=== PATIENT | male | born 1945 | race Caucasian/White ===

== ENCOUNTER 2020-12-05 17:31 | Inpatient (IN) | payer OTHER, SELFPAY ==
[2020-12-05] VITALS (7 sets, daily range): BP systolic 90–147
[~2020-12-05] VITALS: Ht 190.5 cm; Wt 94.0 kg
--- NOTE | 2020-12-05 17:40 | NUR ---
Placed in room 08 . Placed on patient monitor, blood pressure machine and pulse oximeter. To gown for exam. Side rails up.
--- NOTE | 2020-12-05 17:45 | NUR ---
PT BIB [facility] FOR HYPOTENSION AND LOW HR. PT IS FROM [facility].ALS WAS CALLED FOR PT DUE TO BP OF 80/40 AND HR OF 40. PT IS A VENT DEPENDANT PT. ALS GAVE A FLUID BOLUS OF 250 NS AND .5MG ATROPINE FOR HIS HR. PTS HR NOW IS IN THE LOW 40s. PT IS A&OX0 BASELINE AND IS FULL CODE.
[2020-12-05] MEDS ORDERED: NACL 0.9% 1,000 ML IV ONE ×2 (18:00→20:45)
--- NOTE | 2020-12-05 18:05 | NUR ---
NOTIFIED FOR RECTAL TEMPERATURE OF 32 C. JACKSON JEAN ORDERED AND CARRIED OUT.
--- NOTE | 2020-12-05 18:07 | NUR ---
WHEN BAIRR HUGGER APPLIED TO PATIENT AND SET TO AUTO TEMP. UPON TURNING PATIENT AND PLACING RECTAL PROBE PLACED, PATIENT HAS A SACRAL WOUND. WOUND CLEANSED WITH NORMAL SALINE AND MEPILEX APPLIED TO SACRUM.
--- NOTE | 2020-12-05 18:10 | NUR ---
# 16 FR Marroquin catheter with use of sterile technique. Immediate return of 10 cc CLEAR YELLOW urine noted. Bedside drainage bag placed below level of bladder. Urine sample collected and sent to lab. Pt tolerated procedure WELL. Patient arrived with marroquin in place, changed due to standard of practice prior to admission. Patient unable to toilet self.
--- NOTE | 2020-12-05 18:11 | NUR ---
1750 Pt came in to ER, trach pt. AC 16,450VT, PEEP 6, FIO2 30% PER AMBULANCE. PORTEX #8. Placed spare trach and BVM on bedside. will continue to monitor pt. Sputum culture done. 1804 Pt desated low 80s, increased fio2 100%, ER Dr. Alvarado ordered ABG in 30 mins.
[2020-12-05 18:28] LABS: BILIRUBIN,URINE NEGATIVE (NEGATIVE); CLARITY/URINE CLEAR (CLEAR); COLOR,URINE YELLOW (YELLOW); GLUCOSE,URINE NEGATIVE (NEGATIVE); KETONES,URINE NEGATIVE (NEGATIVE); LEUKOCYTE ESTERASE ,URINE TRACE (NEGATIVE); NITRITE, URINE NEGATIVE (NEGATIVE); PH,URINE 6.5 (5.0-8.0); PROTEIN URINE NEGATIVE (NEGATIVE); UROBILINOGEN,URINE 0.2 (0.2-1.0)
--- NOTE | 2020-12-05 18:32 | NUR ---
Note undone in EDM - 12/05/20 at 1840 by MIRYAM PT BIB [facility] FOR HYPOTENSION AND LOW HR. PT IS FROM [facility].ALS WAS CALLED FOR PT DUE TO BP OF 80/40 AND HR OF 40. PT IS A VENT DEPENDANT PT. ALS GAVE A FLUID BOLUS OF 250 NS AND .5MG ATROPINE FOR HIS HR. PTS HR NOW IS IN THE LOW 40s. PT IS A&OX0 BASELINE AND IS FULL CODE.
[2020-12-05 18:37] LABS: BLOOD, URINE TRACE (NEGATIVE)
[2020-12-05 18:47] LABS: BACTERIA,URINE FEW /HPF (None Seen); CALCIUM OXALATE CRYSTALS,UR None Seen /HPF (None Seen); CALCIUM PHOSPHATE CRYSTALS,UR None Seen /HPF (None Seen); RBC,URINE 0-3 /HPF (0-3); TRICHOMONAS,URINE None Seen /HPF (None Seen); TRIPLE PHOSPHATE CRYSTAL,UR None Seen /HPF (None Seen); URIC ACID CRYSTALS,URINE None Seen /HPF (None Seen); YEAST,URINE None Seen /HPF (None Seen)
[2020-12-05 18:48] LABS: COARSE GRANULAR CASTS,URINE None Seen /LPF (None Seen); FINE GRANULAR CASTS,URINE None Seen /LPF (None Seen); HYALINE CASTS, URINE None Seen /LPF (None Seen); MUCUS,URINE None Seen /LPF (None Seen); OTHER CASTS, URINE None Seen /LPF (None Seen); OTHER CRYSTALS,URINE None Seen /HPF (None Seen); URINE AMORPHOUS PHOSPHATES None Seen /HPF (None Seen); URINE AMORPHOUS URATE None Seen /HPF (None Seen); WAXY CASTS,URINE None Seen /LPF (None Seen)
[2020-12-05 18:52] LABS: MEAN CORPUSCULAR HEMOGLOBIN 30 pg (27-31); MEAN CORPUSCULAR HGB CONC 31 % (32-36); MEAN CORPUSCULAR VOLUME 97 fL (79.0-98.0); PLATELET COUNT (AUTO) 132 K/uL (130-430); RED BLOOD CELL COUNT(AUTO) 2.01 MIL/uL (4.2-6.2); RED CELL DISTRIBUTION WIDTH 19.6 % (9.0-15.0); WHITE BLOOD COUNT (AUTO) 13.5 K/uL (4.8-10.8)
--- NOTE | 2020-12-05 19:00 | NUR ---
PT HAS NO BELONGINGS
--- NOTE | 2020-12-05 19:00 | NUR ---
PT IS FULL CODE
[2020-12-05 19:03] LABS: HEMATOCRIT 19.5 % (36-54)
[2020-12-05] MEDS ORDERED: ASCO500T20 GT (19:11)
[2020-12-05] MEDS ORDERED: TYLL650 GT (19:11)
[2020-12-05] MEDS ORDERED: MULT-1100 GT (19:11)
[2020-12-05] MEDS ORDERED: DORZ10DR10 EACH EYE (19:11)
[2020-12-05] MEDS ORDERED: ZINC220T4 GT (19:11)
[2020-12-05] MEDS ORDERED: FERR220S6 GT (19:11)
--- NOTE | 2020-12-05 19:14 | NUR ---
Medication reconciliation completed with information provided by [facility]. Any prior medication reconciliation on file was reviewed and corrected.
[2020-12-05 19:19] LABS: CALCIUM 8.1 mg/dL (8.4-11.0); CHLORIDE 101 mmol/L (98-107); CREATININE 1.17 mg/dL (0.55-1.30); GLUCOSE 88 mg/dL (70-99); SODIUM SERUM 137 mmol/L (136-145); UREA NITROGEN, BLOOD 65 mg/dL (8-21)
[2020-12-05 19:39] LABS: TOTAL BILIRUBIN 0.3 mg/dL (0.0-1.0)
[2020-12-05 19:40] LABS: ALANINE AMINOTRANSFERASE 57 U/L (12-78); ALBUMIN 1.6 g/dL (3.4-4.8); ASPARTATE AMINOTRANSFERASE 52 U/L (10-37)
[2020-12-05 19:41] LABS: ANION GAP < 3 (5-15)
[2020-12-05] MEDS ORDERED: PIPERACILLIN/TAZO 3.375 GM in NS 50 ML IV ONE (20:00)
[2020-12-05] MEDS ORDERED: SODIUM POLYSTYRENE SULFONATE 15 GM/60 ML UDBTL GT ONE (20:00)
[2020-12-05] MEDS ORDERED: PIPERACILLIN/TAZOBACTAM 3.375 GM/VIAL (ZOSYN) IV ONE ×2 (20:02→23:32)
[2020-12-05 20:05] LABS: BAND % (MANUAL) 24 % (0-6); BASOPHILS % (MANUAL) 1 % (0-2); EOSINOPHILS % (MANUAL) 2 % (0-7); LYMPHOCYTES % (MANUAL) 9 % (20-46); MONOCYTES % (MANUAL) 9 % (0-11)
--- NOTE | 2020-12-05 20:12 | NUR ---
Patient will be admitted to care of Dr. Trotter. Admitted to ICU unit. Will go to room 4. Belongings list completed. Complete and up to date summary report printed. SBAR report to be given at bedside with opportunity for questions.
[2020-12-05] MEDS ORDERED: ACETAMINOPHEN 325 MG TABLET PO PRN (20:15)
[2020-12-05] MEDS ORDERED: MORPHINE 4 MG INJ. 4 MG/ML VIAL IVP PRN (20:15)
[2020-12-05] MEDS ORDERED: ALBUTEROL SULFATE 0.083% 2.5 MG/3 ML VIAL.NEB INH PRN (20:15)
[2020-12-05] MEDS ORDERED: MORPHINE 2 MG/ML INJ. SYRINGE IVP PRN (20:15)
[2020-12-05] MEDS ORDERED: NOREPINEPHRINE BITARTRATE 4 MG in NS 246 ML IV ONE (20:15)
[2020-12-05] MEDS ORDERED: LORazepam 2 MG/ML VIAL IVP PRN (20:15)
--- NOTE | 2020-12-05 20:19 | NUR ---
Blood Consent signed by Dr. Alvarado. Attempted to call on multiple occasions and no answer. Patient is hemodynamically unstable at this time.
--- NOTE | 2020-12-05 20:40 | NUR ---
DR. RAMOS AT BEDSIDE INSTERTING A CENTRAL LINE. LEFT IJ. TRIPLE LUMEN.
[2020-12-05] MEDS ORDERED: ATROPINE SULFATE 0.4 MG/ML VIAL IVP PRN (20:45)
[2020-12-05] MEDS ORDERED: SODIUM POLYSTYRENE SULFONATE 15 GM/60 ML UDBTL RC ONE (20:45)
--- NOTE | 2020-12-05 20:50 | NUR ---
SPOKE WITH RADHA, WHO CONSENTED BLOOD TRANSFUSION.
[2020-12-05] MEDS ORDERED: NOREPINEPHRINE 4 MG/4 ML VIAL IV ONE (20:57)
--- NOTE | 2020-12-05 21:05 | NUR ---
radiology at bedside for chest xray to confirm placement of central line
[2020-12-05] MEDS: NACL 0.9% 1,000 ML IV SCH ×2 (21:16→22:43)
--- NOTE | 2020-12-05 21:24 | NUR ---
Transfer to ICU via ACLS protocol. Licensed nurse present. IV present no signs or symptoms of infiltration.
--- NOTE | 2020-12-05 21:50 | NUR ---
Received patient from ER, not awake, alert or oriented. Intubated via trach, settings: TV 500, 50L, peep 6, FiO2 100%, tolerating it well. Patient has a g-tube, placement was verified, residual is 0ml. Patient has a marroquin cath, draining out yellow urine, bag is secured and below bladder. Patient on levophed drip, bradycardic at this time. On a bear hugger. No belongings present. New central line placed, patent and dressing is intact. I got a full report from ER nurse. Bed is low, locked, 2 side rails are up and call light is within reach.
--- NOTE | 2020-12-05 22:07 | NUR ---
PAGED FOR CONSULT ORDERING PHYSICIAN: \ REASON FOR CONSULT: BRADYCARDIA DIALED: [phone] SPOKE TO: RALPH
[2020-12-05] MEDS ORDERED: VANCOMYCIN HCL 1 GM/NS PREMIX 250 ML IV ONE (23:45)
[2020-12-05] MEDS ORDERED: ALBUMIN HUMAN 25% 100 ML IV ONE (23:45)
[2020-12-06] VITALS (30 sets, daily range): BP systolic 101–138
[2020-12-06] MEDS ORDERED: VANCOMYCIN HCL 1000 MG/VIAL IV ONE (00:23)
[2020-12-06] MEDS ORDERED: PIPERACILLIN/TAZO 3.375/DEX-IS 50 ML IV SCH (02:00)
[2020-12-06] MEDS ORDERED: NOREPINEPHRINE 4 MG/4 ML VIAL IV ONE ×2 (03:13→08:21)
[2020-12-06] MEDS: NOREPINEPHRINE BITARTRATE 4 MG in NS 246 ML IV PRN ×3 (03:15→13:47)
[2020-12-06] MEDS ORDERED: ALBUMIN HUMAN 25% 100 ML IV ONE (03:55)
--- NOTE | 2020-12-06 06:01 | NUR ---
PAGED FOR CONSULT ORDERING PHYSICIAN: \ REASON FOR CONSULT: RESPIRATORY FAILURE DIALED: [phone] SPOKE TO:
[2020-12-06 06:10] LABS: HEMATOCRIT 23.2 % (36-54); HEMOGLOBIN 7.2 g/dL (14.0-18.0); MEAN CORPUSCULAR HEMOGLOBIN 30 pg (27-31); MEAN CORPUSCULAR HGB CONC 31 % (32-36); MEAN CORPUSCULAR VOLUME 96 fL (79.0-98.0); PLATELET COUNT (AUTO) 144 K/uL (130-430); RED BLOOD CELL COUNT(AUTO) 2.42 MIL/uL (4.2-6.2); RED CELL DISTRIBUTION WIDTH 18.5 % (9.0-15.0); WHITE BLOOD COUNT (AUTO) 19.6 K/uL (4.8-10.8)
[2020-12-06 06:31] LABS: ALANINE AMINOTRANSFERASE 51 U/L (12-78); ALBUMIN 2.1 g/dL (3.4-4.8); ANION GAP 5 (5-15); ASPARTATE AMINOTRANSFERASE 60 U/L (10-37); CALCIUM 8.2 mg/dL (8.4-11.0); CHLORIDE 102 mmol/L (98-107); CREATININE 1.24 mg/dL (0.55-1.30); SODIUM SERUM 139 mmol/L (136-145); TOTAL BILIRUBIN 0.3 mg/dL (0.0-1.0); UREA NITROGEN, BLOOD 64 mg/dL (8-21)
[2020-12-06 06:36] LABS: BAND % (MANUAL) 20 % (0-6); BASOPHILS % (MANUAL) 0 % (0-2); EOSINOPHILS % (MANUAL) 1 % (0-7); LYMPHOCYTES % (MANUAL) 2 % (20-46); METAMYELOCYTES % 5 % (0-0); MONOCYTES % (MANUAL) 4 % (0-11); MYELOCYTES % 2 % (0-0); PROMYELOCYTES % 3 % (0-0)
--- NOTE | 2020-12-06 06:59 | NUR ---
Nutrition Update Juan Scale 10 noted. Pt admitted for Multiorgan failure, Septic shock Diet: NPO BMI: 21.2 kg/m2 RD to follow per nutrition care standards.
[2020-12-06 07:29] LABS: POTASSIUM 5.9 mmol/L (3.5-5.1)
[2020-12-06 07:30] LABS: GLUCOSE 17 mg/dL (70-99)
[2020-12-06] MEDS ORDERED: DEXTROSE 50% JECT 50 ML DISP.SYRIN ONE ×2 (07:39→08:38)
[2020-12-06] MEDS ORDERED: DEXTROSE 50% JECT 50 ML DISP.SYRIN IVP PRN (07:45)
[2020-12-06] MEDS ORDERED: D5W 1,000 ML IV PRN (07:45)
[2020-12-06] MEDS ORDERED: GLUCOSE (DEXTROSE) ORAL GEL -Adults PO PRN (07:45)
[2020-12-06] MEDS: D5W 1,000 ML IV SCH ×2 (08:00→12:35)
[2020-12-06] MEDS ORDERED: SODIUM POLYSTYRENE SULFONATE 15 GM/60 ML UDBTL PO ONE (08:00)
[2020-12-06] MEDS: D10W 1,000 ML IV SCH ×2 (08:54→22:27)
[2020-12-06] MEDS ORDERED: PIPERACILLIN/TAZOBACTAM 3.375 GM/ D5W 50 ML IV ONE ×2 (10:00)
[2020-12-06] MEDS: VANCOMYCIN HCL 750 MG in NS 250 ML IV SCH ×2 (12:04→21:10)
--- NOTE | 2020-12-06 13:32 | NUR ---
Dietitian Recommendations *Recommend: renal friendly EN formula (elevated K). *Recommend: Nepro at 35ml/hr (goal rate), Farooq BID, FWF 150ml Q4H via GT Provides: 1672 kcal, 73gm protein and 1511ml fluids daily. Meets: 91% of lower end of estimated calorie needs and 95% of lower end of estimated protein needs. Please see Nutritional Assessment for details. INTERMEDIATE, RD
--- NOTE | 2020-12-06 15:07 | NUR ---
WOUND EVALUATION: Late note for 12/06/2020 at 1507 secondary to patient care. Wound Consult received from Dr. Duncan. Thank you, Dr. Duncan, for the consult. Patient received in a Shayla Bed with an IsoFlex ISABELLA mattress, awake, nonverbal, nonresponsive to verbal commands. Patient is unable to turn in bed independently. Juan Score is a 10. Past Medical History: Cardiac Arrest, Tracheostomy, Intracranial Bleed, Diabetes Mellitus, Ventilator dependency, PEG tube. Recent Labs: WBC 19.6, RBC 2.42, hemoglobin 7.2, hematocrit 23.2, potassium 5.9, carbon dioxide 32, BUN 64, creatinine 1.24, glucose 17, POC glucose 119, calcium 8.2, AST 60, alkaline phosphatase 282, albumin 2.1, TSH 36.93. Microbiology: Blood culture results x2 in progress. MRSA screen results in progress. Sputum culture results in progress. Urine culture results negative. Intrinsic factors that delay wound healing: Venous insufficiency, Hypoalbuminemia. Extrinsic factors that delay wound healing: Decreased mobility. Per assessment by Dr. Cramer: "1. Acute on chronic hypoxic respiratory failure, status post tracheostomy. 2. Septic shock. 3. Multiorgan failure. 4. Symptomatic bradycardia. 5. Severe anemia. 6. Severe leukocytosis with bandemia. 7. Bilateral pulmonary infiltrate, concern for pneumonia, COVID negative PCR. 8. History of cardiac arrest. 9. Chronic dysphagia. 10. Severe hypoglycemia. PLAN: 1. Continue mechanical ventilation support. 2. Continue broad spectrum IV antibiotics. 3. Continue D10. Monitor Accu-Cheks. D50 p.r.n. Start tube feeds. 4. Severe bradycardia status post atropine. Continue to monitor for need for dopamine. 5. Continue to wean vasopressors to keep MAP above 65. 6. Status post transfusion. Monitor H and H. No signs of bleeding. 7. Follow up blood cultures. 8. Chest x-ray noted with bilateral infiltrate concerning for right hilar density. We will obtain CT chest, abdomen and pelvis. Further evaluation of sepsis. 9. Check TSH with hypoglycemia and bradycardia. 10. Hyperkalemia noted, continue cocktail treatment. 11. Overall prognosis is poor. We will need to contact family, discuss goals of care. The patient is high risk for further decompensation and cardiac arrest. 12. DVT and GI prophylaxis." Wound Assessment: 1. Sacral-Coccygeal area: Stage IV pressure ulcer, present on admission. Wound bed has 5% red tissue, 15% yellow slough, 80% black slough. Foul odor, small yellow purulent drainage. Ana-wound intact. Surrounding tissue superior to wound has dark discoloration. Wound measures 9.7 cm x 12.0 cm. Recommend: Cleanse wound with normal saline. Apply moisture barrier cream to ana-wound. Apply Venelex ointment to wound bed. Cover with Sacral foam dressing. Perform wound care daily, and as needed for dressing soiling or dislodgement. 2. Right Posterior Lateral Upper Back: Unstageable pressure ulcer, present on admission. Wound bed has 100% yellow tissue. No odor, scant yellow drainage. Ana-wound intact. Wound measures 0.8 cm x 0.5 cm. Recommend: Cleanse wound with normal saline. Apply moisture barrier cream to ana-wound. Apply Venelex ointment to wound bed. Cover with 4x4 foam dressing. Perform wound care daily, and as needed for dressing soiling or dislodgement. 3. Left Distal Medial Rodas: Scab, present on admission. Scab has 100% brown scab tissue. No odor, no drainage. Periwound erythematous. Scab measures 2.0 cm x 1.5 cm. Recommend: Cleanse wound with normal saline. Apply moisture barrier cream to ana-wound. Apply Venelex ointment to wound bed. Cover with 4x4 foam dressing. Perform wound care daily, and as needed for dressing soiling or dislodgement. 4. Left Medial Malleolus: Chronic unstageable pressure ulcer, present on admission. Wound bed has 100% brown eschar. No odor, no drainage. Dry, stable. Ana-wound intact. Wound measures 2.0 cm x 1.7 cm. Recommend: Cover site with foam dressing. Change dressing daily, and as needed for dressing soiling or dislodgment. Assess site q shift (peel dressing and peak to assess site when dressing is not due to be changed). 5. Scrotum: Intertrigo with erythema from IAD, present on admission. Recommend: Cleanse involved areas with mild soap and water. Pat dry. Apply antifungal powder to involved areas. Dust off excess powder with clean gauze. Cut Inter-dry Ag cloth to size and place underneath scrotum and pull scrotum up off of bed by pulling cloth up in between thighs. Perform site care twice daily. Replace Inter-dry cloth every 5 days and as needed for cloth soiling. 6. Left Heel: Blanchable redness. 7. Right Heel: Blanchable redness. Recommend: Elevate, offload and float bilateral heels with one pillow lengthwise under each extremity at all times. 8. Bilateral Upper Extremities: Scattered areas of ecchymosis and scabs, present on admission. Gross nonpitting edema present with small serous weepage. Recommend: No dressings needed. Continue to monitor site every shift. Elevate bilateral extremities above the head every shift. 9. Bilateral Lower Extremities: Scattered areas of scabs, present on admission. Recommend: No dressings needed. Continue to monitor site every shift. Elevate, offload and float bilateral lower extremities with one pillow lengthwise under each extremity at all times. Also recommend: Reposition patient side to side only 2 hours with pillow support and off-load pressure areas with pillows for pressure re-distribution. Offload, elevate and float bilateral heels with one pillow lengthwise under each extremity at all times. Perform skin care and monitor skin integrity Q shift. Use moisture barrier cream on buttocks and other moisture susceptible areas QID and as needed for soiling. Initiate low air-loss therapy.
[2020-12-06] MEDS ORDERED: NOREPINEPHRINE BITARTRATE 8 MG in D5W 242 ML IV PRN (18:15)
[2020-12-06] MEDS: PIPERACILLIN/TAZOBACTAM 3.375 GM/ D5W 50 ML IV SCH ×2 (18:39)
--- NOTE | 2020-12-06 19:36 | NUR ---
CLOSING NOTE: REPORT GIVEN TO RN USING SBAR REPORTING. PT CONT ON D10, LAST BS WAS 119.
--- NOTE | 2020-12-06 20:00 | NUR ---
RESPONDS TO NOXIOUS STIMULI. TRACH TO VENT. SUCTIONED WITH MOD AMOUNT OF THICK CORRAL MUCUS OBTAINED. ORAL CARE GIVEN. GT FEEDING WITH NEPRO AT 35CC/HR. RESIDUAL CHECK 40CC. ON LEVOPHED DECREASED TO 0.1 MCG/KG/MIN. ACCU-CHEK Q 1H. ON D10W AT 75CC/HR. SEGUNDO CATH PATENT DRAINING CLOUDY OSCAR URINE TO GRAVITY.
--- NOTE | 2020-12-06 22:00 | NUR ---
HS CARE GIVEN.
[2020-12-07] VITALS (34 sets, daily range): BP systolic 118–153
--- NOTE | 2020-12-07 | NUR ---
SUCTIONED WITH SAME RESULTS. ORAL CARE GIVEN. TURNED. ACCU-CHEK Q1 HR DONE.
[2020-12-07] MEDS: PIPERACILLIN/TAZOBACTAM 3.375 GM/ D5W 50 ML IV SCH ×8 (00:10→17:11)
--- NOTE | 2020-12-07 04:00 | NUR ---
SUCTIONED. TURNED. ORAL CARE DONE. LEVOPHED DECREASED TO 0.07 MCG/KG/MIN.
--- NOTE | 2020-12-07 06:00 | NUR ---
UO GOOD. ACCU-CHEK 233. AM CARE DONE. REMAINS IN GUARDED CONDITION.
[2020-12-07 07:05] LABS: BASOPHILS # (AUTO) 0.1 K/uL (0.0-0.2); BASOPHILS % (AUTO) 0.4 % (0.0-2.0); EOSINOPHILS # (AUTO) 0.1 K/uL (0.0-0.4); LYMPHOCYTES # (AUTO) 0.9 K/uL (1.0-5.5); LYMPHOCYTES % (AUTO) 6.8 % (20.5-51.5); MEAN CORPUSCULAR HEMOGLOBIN 30 pg (27-31); MEAN CORPUSCULAR HGB CONC 32 % (32-36); MEAN CORPUSCULAR VOLUME 96 fL (79.0-98.0); MONOCYTES # (AUTO) 0.5 K/uL (0.0-1.0); NEUTROPHILS # (AUTO) 11.6 K/uL (1.8-7.7); NEUTROPHILS % (AUTO) 87.8 % (40.0-70.0); PLATELET COUNT (AUTO) 110 K/uL (130-430); RED CELL DISTRIBUTION WIDTH 18.2 % (9.0-15.0); WHITE BLOOD COUNT (AUTO) 13.2 K/uL (4.8-10.8)
[2020-12-07 07:17] LABS: PROTHROMBIN TIME 10.3 SECS (9.5-12.5)
[2020-12-07 07:25] LABS: ALANINE AMINOTRANSFERASE 52 U/L (12-78); ALBUMIN 1.7 g/dL (3.4-4.8); ANION GAP 8 (5-15); ASPARTATE AMINOTRANSFERASE 42 U/L (10-37); CALCIUM 7.6 mg/dL (8.4-11.0); CHLORIDE 104 mmol/L (98-107); CREATININE 1.35 mg/dL (0.55-1.30); GLUCOSE 242 mg/dL (70-99); LIPASE 489 U/L (73-393); POTASSIUM 4.5 mmol/L (3.5-5.1); SODIUM SERUM 143 mmol/L (136-145); TOTAL BILIRUBIN 0.3 mg/dL (0.0-1.0); UREA NITROGEN, BLOOD 55 mg/dL (8-21)
[2020-12-07] MEDS: D5W 1,000 ML IV SCH ×2 (07:55→17:10)
[2020-12-07] MEDS: VANCOMYCIN HCL 750 MG in NS 250 ML IV SCH ×2 (09:43→21:15)
[2020-12-07 10:09] LABS: HEMATOCRIT 20.1 % (36-54); HEMOGLOBIN 6.4 g/dL (14.0-18.0)
[2020-12-07] MEDS ORDERED: BALSAM PERU/CASTOR OIL 60 GM OINT...G. TP ONE (14:00)
[2020-12-07] MEDS ORDERED: PANTOPRAZOLE SODIUM 40 MG/VIAL (PROTONIX) IVP ONE (16:00)
[2020-12-07] MEDS ORDERED: FUROSEMIDE 40 MG/4 ML VIAL IVP ONE (16:00)
--- NOTE | 2020-12-07 19:30 | NUR ---
Opening Note Received report from AM nurse using SBAR approach.
--- NOTE | 2020-12-07 19:50 | NUR ---
1 unit blood transfusion completed. No signs or symptoms of distress or adverse reactions noted.
--- NOTE | 2020-12-07 21:00 | NUR ---
BT INITIATION: Consent signed per patient agreeing to administration of blood. Blood has been type and crossmatched. Blood sent from blood bank. Information on unit of blood checked against patient wristband at bedside by two nurses. All information matches. Patient or responsible constitution party informed of potential complications associated with blood transfusion. Informed of possible transfusion reaction symptoms. Aware of need to notify nurse at once of itching, shortness of breath, flushing, feeling of impending doom, or other symptoms not previously present. Vital signs taken within 5 minutes prior to initiation of transfusion. RN will remain with patient for first 15 minutes of transfusion at which time vital signs will be re-assessed.
--- NOTE | 2020-12-07 23:50 | NUR ---
2 unit of blood transfusion completed. No signs or symptoms of distress or adverse reactions noted.
[2020-12-08] VITALS (36 sets, daily range): BP systolic 101–154
[2020-12-08] MEDS: D5W 1,000 ML IV SCH ×4 (00:35→19:45)
[2020-12-08] MEDS: PIPERACILLIN/TAZOBACTAM 3.375 GM/ D5W 50 ML IV SCH ×8 (00:35→18:13)
[2020-12-08] MEDS: LEVOTHYROXINE SODIUM 0.075 MG TABLET PO SCH (06:34)
[2020-12-08 06:36] LABS: BASOPHILS % (AUTO) 0.3 % (0.0-2.0); EOSINOPHILS # (AUTO) 0.2 K/uL (0.0-0.4); EOSINOPHILS % (AUTO) 2.5 % (0.0-4.0); HEMATOCRIT 27.2 % (36-54); HEMOGLOBIN 8.8 g/dL (14.0-18.0); LYMPHOCYTES # (AUTO) 0.7 K/uL (1.0-5.5); LYMPHOCYTES % (AUTO) 8.3 % (20.5-51.5); MEAN CORPUSCULAR HEMOGLOBIN 31 pg (27-31); MEAN CORPUSCULAR HGB CONC 32 % (32-36); MEAN CORPUSCULAR VOLUME 95 fL (79.0-98.0); MONOCYTES # (AUTO) 0.4 K/uL (0.0-1.0); MONOCYTES % (AUTO) 4.3 % (1.7-9.3); NEUTROPHILS # (AUTO) 7.1 K/uL (1.8-7.7); PLATELET COUNT (AUTO) 80 K/uL (130-430); RED BLOOD CELL COUNT(AUTO) 2.86 MIL/uL (4.2-6.2); RED CELL DISTRIBUTION WIDTH 16.5 % (9.0-15.0); WHITE BLOOD COUNT (AUTO) 8.4 K/uL (4.8-10.8)
[2020-12-08 06:51] LABS: ALANINE AMINOTRANSFERASE 47 U/L (12-78); ALBUMIN 1.7 g/dL (3.4-4.8); ANION GAP 9 (5-15); ASPARTATE AMINOTRANSFERASE 36 U/L (10-37); CHLORIDE 103 mmol/L (98-107); CREATININE 1.33 mg/dL (0.55-1.30); GLUCOSE 295 mg/dL (70-99); POTASSIUM 3.6 mmol/L (3.5-5.1); SODIUM SERUM 144 mmol/L (136-145); UREA NITROGEN, BLOOD 48 mg/dL (8-21)
[2020-12-08 07:18] LABS: TOTAL BILIRUBIN 0.5 mg/dL (0.0-1.0)
--- NOTE | 2020-12-08 08:00 | NUR ---
AM ASSESSMENT. PT OBTUNDED, PUPILS UNEQUAL, NO EYE CONTACT, ORAL CARE PROVIDED, REPOSITIONED IN BED, EDEMA TO ARMS AND LEGS, SKIN MOIST TO BOTH ARMS, CLEAN ABSORBENT PADS PLACED UNDER HIS ARMS, FOAM DRESSINGS REMOVED FROM LEFT LOWER LEG AND SKIN CARE DONE, FOAM DRESSING APPLIED TO COVER. HEELS OFF LOADED.
[2020-12-08] MEDS: VANCOMYCIN HCL 750 MG in NS 250 ML IV SCH (08:43)
[2020-12-08] MEDS: FUROSEMIDE 40 MG/4 ML VIAL IVP SCH (08:46)
[2020-12-08] MEDS: BALSAM PERU/CASTOR OIL 60 GM OINT...G. TP SCH (08:46)
[2020-12-08] MEDS: PANTOPRAZOLE SODIUM 40 MG/VIAL (PROTONIX) IVP SCH (08:46)
--- NOTE | 2020-12-08 10:00 | NUR ---
WOUND CARE. TURNED AND REPOSITIONED TO HIS SIDE, INCONTINENT OF BOWEL, MODERATE DARK BROWN STOOL, GOOD PERINEAL CARE PROVIDED. FOAM DRESSINGS REMOVED FROM UPPER BACK AND SACRAL AREA, WOUNDS WASHED WITH SALINE, SKIN CARE DONE WITH VENELEX OINTMENT.
[2020-12-08 10:35] LABS: NEUTROPHILS % (AUTO) 84.6 % (40.0-70.0)
--- NOTE | 2020-12-08 15:00 | NUR ---
FAMILY PT'S RADHA CAME IN. UPDATE HER ON PT'S STATUS.
--- NOTE | 2020-12-08 19:35 | NUR ---
OPENING NOTE Received SBAR report from off coming RN for continuity of care. Pt laying in bed with eyes closed. D5W infusing @ 125ml/hr. Tube feeding infusing @ 35ml/hr through G-tube. Norris catheter draining to gravity. Bed locked and in lowest position, safety precautions in place.
--- NOTE | 2020-12-08 21:00 | NUR ---
Pt laying in bed with eyes closed, opens eyes spontaneously and withdraws to pain but is not able to follow commands. Pt has a tracheostomy and is on ventilator, O2 saturations maintained above 90%. Moderate amount of secretions noted, provided PO care and suctioning. Pt bradycardic at times in the 40's and 50's. D5W infusing @ 125ml/hr. Tube feeding infusing @ 35ml/hr through G-tube, minimal residuals obtained. Norris catheter draining to gravity, yellow clear urine noted for output. Pt turned and repositioned, pt tolerated well. Bed locked and in lowest position, safety precautions in place.
[2020-12-09] VITALS (36 sets, daily range): BP systolic 94–152
[2020-12-09] MEDS: PIPERACILLIN/TAZOBACTAM 3.375 GM/ D5W 50 ML IV SCH ×10 (01:25→23:21)
--- NOTE | 2020-12-09 05:00 | NUR ---
CHG bath provided, pt tolerated well.
[2020-12-09] MEDS: LEVOTHYROXINE SODIUM 0.075 MG TABLET PO SCH (06:55)
--- NOTE | 2020-12-09 07:35 | NUR ---
CLOSING NOTE Endorsed SBAR Report to oncoming RN for continuity of care.
[2020-12-09] MEDS: PANTOPRAZOLE SODIUM 40 MG/VIAL (PROTONIX) IVP SCH (09:57)
[2020-12-09] MEDS: FUROSEMIDE 40 MG/4 ML VIAL IVP SCH (09:59)
[2020-12-09] MEDS: VANCOMYCIN HCL 1.25 GM/NS 250 ML IV SCH (10:01)
[2020-12-09] MEDS: BALSAM PERU/CASTOR OIL 60 GM OINT...G. TP SCH (10:02)
--- NOTE | 2020-12-09 16:46 | NUR ---
Nutrition F/U RD reviewed pt's current EMR record including diet Hx, physician notes, nursing notes, pertinent labs/meds/procedures, care trends, and care activity. Admission Dx: Multiorgan failure Pt w/: multiorgan failure, septic shock, Bradycardia, Severe anemia, Hypercapnic, Vent dependent, History of cardiac arrest, possible GI blood loss versus bone marrow suppression per MD notes. PMH: Cardiac arrest, Intracranial bleed, DM, Vent dependent per MD notes Current Diet Order/Nutrition Support: Nepro at 35ml/hr (goal rate), Farooq BID, Free Water Flush: 50ml Q6H via GT Subjective Info: RD visited pt at bedside, +vent, Ve noted at 10.1 per vent machine. EN support was infusing as per physician order -- 447 ml infused, providing 805 kcal. RN reported that pt has been tolerating TF well, however, has been running a low temp. She stated she has not given pt Farooq yet, but is now aware of order. Per EMR review, pt is comatose on vent; received 2 units of PRBC; has generalized edema -- nursing notes indicated 1+ pitting edema to BLE and 4+ pitting edema to BUE; TF Rate: 35 ml 12/09; GRV: 0 ml 12/09; TF Intakes: 70 ml 12/09; abd is soft and non-distended w/ hypoactive bowel sounds; last BM x2 12/08. Pertinent Meds: vancomycin/NaCl IV, protonix IV, lasix, synthroid, piperacillin/tazobactam/D5%/W at 100 ml/hr (408 kcal/day) Pertinent Labs: 12/09: POC BG 326 H; 12/08: WBC 8.4 WNL, K 3.6 WNL, BG 326 H, BUN 48 H, CRE 1.33 H, AST 36 H Ht: 6'3"/75" Wt: 170#/77 kg (12/06) -- *wt appears stable Body Mass Index: 21.25 kg/m2 (underwt for geriatric age) %IBW: 87 Baldwin/Adjusted Body Weight: 196#/ 89kg Skin Integrity Comment: Juan scale: 9; per Dental Biller note 12/06: 1. Sacral-Coccygeal area: Stage IV pressure ulcer, present on admission. 2. Right Posterior Lateral Upper Back: Unstageable pressure ulcer, present on admission. 3. Left Distal Medial Rodas: Scab, present on admission. 4. Left Medial Malleolus: Chronic unstageable pressure ulcer, present on admission. 5. Scrotum: Intertrigo with erythema from IAD, present on admission. 6. Left Heel: Blanchable redness. 7. Right Heel: Blanchable redness. 8. Bilateral Upper Extremities: Scattered areas of ecchymosis and scabs, present on admission. 9. Bilateral Lower Extremities: Scattered areas of scabs, present on admission. NEW Estimated Energy Expenditure (kcals/day) 1810 Kcal/day (PSU 2003b for critical illness on vent, afebrile -- Ve: 10.1, Temp: 37 degrees C) Estimated Protein Required (g/day) 77-92 gm/day (1-1.2 gm/kg CBW for elevated renal labs, wound healing) Estimated Fluid Required (l/day) 1.8 L/day (1ml/calorie for maintenance) Problem/Etiology/Signs/Symptoms Increased nutrient needs r/t metabolic demands AEB estimated calorie and protein needs for wound healing. *ongoing Altered nutrition related labs r/t renal dysfunction AEB elevated BUN, Cre, K. *ongoing Expected Outcomes/Goals Monitor EN tolerance and intake w/ goal of pt meeting more than 75% of estimated nutritional needs, labs trending WNL, normal GI function, skin integrity/wt maintenance. Dietitian Recommendations * Recommend continuing Nepro at 35 ml/hr (goal rate), Farooq BID, Free Water Flush: 50ml Q6H via GT Provides: 1672 kcal/day, 73 gm protein/day, and 811 ml free water/day Meets: 92% of lower end of estimated caloric needs and 95% of lower end of estimated protein needs Follow Up High Risk: F/U in 2-3 days
--- NOTE | 2020-12-09 17:02 | NUR ---
Dietitian Recommendations * Recommend continuing Nepro at 35 ml/hr (goal rate), Farooq BID, Free Water Flush: 50ml Q6H via GT Provides: 1672 kcal/day, 73 gm protein/day, and 811 ml free water/day Meets: 92% of lower end of estimated caloric needs and 95% of lower end of estimated protein needs LP, RD Please refer to Nutrition F/U for details.
--- NOTE | 2020-12-09 19:35 | NUR ---
OPENING NOTE Received SBAR report from off coming RN for continuation of care. Patient laying in bed with eyes closed, no s/s of distress noted. at the bedside. Pt trach to vent, oxygen saturations maintained above 90%. Tube feeding infusing, Norris catheter in place and draining to gravity. Bed locked and in lowest position, safety precautions in place.
--- NOTE | 2020-12-09 21:00 | NUR ---
Pt laying in bed with eyes closed, opens eyes spontaneously and withdraws to pain but is not able to follow commands. Pt has a tracheostomy and is on ventilator, O2 saturations maintained above 90%. Moderate amount of secretions noted, provided PO care and suctioning. Noted to have bloody PO secretions, noticed pt bit lip and it was bleeding. Pt bradycardic at times in the 50's.Tube feeding infusing @ 35ml/hr through G-tube, minimal residuals obtained. Norris catheter draining to gravity, yellow clear urine noted for output. Pt turned and repositioned, pt tolerated well. Bed locked and in lowest position, safety precautions in place.
--- NOTE | 2020-12-09 23:59 | NUR ---
MD PANCHITO JONES [facility] [phone] SPOKE WITH DYLAN
[2020-12-10] VITALS (27 sets, daily range): BP systolic 100–139
--- NOTE | 2020-12-10 05:00 | NUR ---
CHG bath, wound care and full bed bath provided, pt tolerated well. Full linen change done as well.
[2020-12-10] MEDS: PIPERACILLIN/TAZOBACTAM 3.375 GM/ D5W 50 ML IV SCH ×6 (06:17→17:09)
[2020-12-10] MEDS: LEVOTHYROXINE SODIUM 0.075 MG TABLET PO SCH (06:17)
[2020-12-10 06:35] LABS: BASOPHILS % (AUTO) 0.3 % (0.0-2.0); EOSINOPHILS # (AUTO) 0.2 K/uL (0.0-0.4); EOSINOPHILS % (AUTO) 2.1 % (0.0-4.0); HEMATOCRIT 26.9 % (36-54); LYMPHOCYTES % (AUTO) 9.8 % (20.5-51.5); MEAN CORPUSCULAR HEMOGLOBIN 32 pg (27-31); MEAN CORPUSCULAR HGB CONC 33 % (32-36); MEAN CORPUSCULAR VOLUME 95 fL (79.0-98.0); MONOCYTES # (AUTO) 0.5 K/uL (0.0-1.0); MONOCYTES % (AUTO) 4.4 % (1.7-9.3); NEUTROPHILS # (AUTO) 8.5 K/uL (1.8-7.7); NEUTROPHILS % (AUTO) 83.4 % (40.0-70.0); PLATELET COUNT (AUTO) 67 K/uL (130-430); RED BLOOD CELL COUNT(AUTO) 2.84 MIL/uL (4.2-6.2); RED CELL DISTRIBUTION WIDTH 16.6 % (9.0-15.0); WHITE BLOOD COUNT (AUTO) 10.2 K/uL (4.8-10.8)
[2020-12-10 06:52] LABS: ANION GAP 6 (5-15); CALCIUM 8.5 mg/dL (8.4-11.0); CHLORIDE 103 mmol/L (98-107); CREATININE 1.38 mg/dL (0.55-1.30); GLUCOSE 192 mg/dL (70-99); POTASSIUM 3.2 mmol/L (3.5-5.1); SODIUM SERUM 143 mmol/L (136-145); UREA NITROGEN, BLOOD 44 mg/dL (8-21)
--- NOTE | 2020-12-10 07:33 | NUR ---
CLOSING NOTE Endorsed SBAR report to oncoming Rn for continuity of care.
--- NOTE | 2020-12-10 08:00 | NUR ---
[place] of Care Pt awake, unable to follow commands, opens eyes and does not track, no signs of pain or distress at this time. GT feeding in place. Norris in place draining urine to gravity. Edema noted bilateral upper extremities with weeping, edema also on BLE. Heel lift boots in place.
[2020-12-10] MEDS: PANTOPRAZOLE SODIUM 40 MG/VIAL (PROTONIX) IVP SCH (08:40)
[2020-12-10] MEDS: FUROSEMIDE 40 MG/4 ML VIAL IVP SCH (08:42)
[2020-12-10] MEDS: VANCOMYCIN HCL 1.25 GM/NS 250 ML IV SCH (08:43)
[2020-12-10] MEDS: BALSAM PERU/CASTOR OIL 60 GM OINT...G. TP SCH (08:43)
--- NOTE | 2020-12-10 09:40 | NUR ---
Dr. Hartmann rounding on pt. New orders made.
[2020-12-10] MEDS ORDERED: POTASSIUM CHLORIDE 20 MEQ/PKT PACKET GT ONE (09:45)
--- NOTE | 2020-12-10 10:30 | NUR ---
Discharge Planning Received call from Radha [phone] from [facility], informed about Dr. Hartmann's order for discharge planning to subacute if bed available.
--- NOTE | 2020-12-10 13:06 | NUR ---
Re: Transfer Received call from Radha from [facility], states bed is available in [facility] room 406B, number for report is [phone]. Transport still pending. Call also made to Eugenie Faye to notify of transfer order, no answer, left voicemail.
--- NOTE | 2020-12-10 14:37 | NUR ---
Called pt's , Eugenie, no answer. Left voicemail to call back for consent.
--- NOTE | 2020-12-10 15:26 | NUR ---
Left voicemail with patient's Eugenie.
--- NOTE | 2020-12-10 16:00 | NUR ---
Informed MYKE Garcia for [facility], regarding reaching pt's Eugenie. Radha states she has also been calling and leaving voicemail, and if no response, then ambulance can be change to will call for later transfer.
--- NOTE | 2020-12-10 18:20 | NUR ---
Transfer/DC to [facility] Pt DC to [facility]. Report given to Rosaline REAL at [phone]. Pt will be under Dr. Pino and will be in room [address] Hartmann, pt will continue vancomycin for 14 days total until December 22. No belongings present. Pt transfer via [facility] from [facility]. Attempted to reach pt's , Eugenie, to inform of transfer, no answer, left voicemail.
== END 2020-12-10 18:20 | DRG 871 ==
LOC: SED 17:31 → SIC 20:07
PROVIDERS: ADMIT Internal Medicine Hospice and Palliative Medicine; ATTEND Internal Medicine Hospice and Palliative Medicine
PROC: 5A1945Z Respiratory Ventilation, 24-96 Consecutive Hours (ICD-10-PCS; principal; 2020-12-05)
PROC: 02HV33Z Insertion of Infusion Device into Superior Vena Cava, Percutaneous Approach (ICD-10-PCS; 2020-12-05)
PROC: 30233N1 Transfusion of Nonautologous Red Blood Cells into Peripheral Vein, Percutaneous Approach (ICD-10-PCS; 2020-12-06)
DX: A41.9 Sepsis, unspecified organism (principal); J96.21 Acute and chronic respiratory failure with hypoxia; R65.21 Severe sepsis with septic shock; E43 Unspecified severe protein-calorie malnutrition; G82.50 Quadriplegia, unspecified; J18.9 Pneumonia, unspecified organism; G93.1 Anoxic brain damage, not elsewhere classified; N17.9 Acute kidney failure, unspecified; Z99.11 Dependence on respirator [ventilator] status; E11.649 Type 2 diabetes mellitus with hypoglycemia without coma; R00.1 Bradycardia, unspecified; D64.9 Anemia, unspecified; R13.10 Dysphagia, unspecified; Z20.822 Contact with and (suspected) exposure to COVID-19; E87.6 Hypokalemia; E03.9 Hypothyroidism, unspecified; L89.159 Pressure ulcer of sacral region, unspecified stage; D69.6 Thrombocytopenia, unspecified; E11.65 Type 2 diabetes mellitus with hyperglycemia; N18.30 Chronic kidney disease, stage 3 unspecified; E11.22 Type 2 diabetes mellitus with diabetic chronic kidney disease; I12.9 Hypertensive chronic kidney disease with stage 1 through stage 4 chronic kidney disease, or unspecified chronic kidney disease; I25.10 Atherosclerotic heart disease of native coronary artery without angina pectoris; Z86.74 Personal history of sudden cardiac arrest; Z74.01 Bed confinement status; Z86.73 Personal history of transient ischemic attack (TIA), and cerebral infarction without residual deficits; Z93.0 Tracheostomy status
CPT/HCPCS: 36415; 36430; 36600; 71045; 80048; 80053; 80202; 81000; 82803-TC; 82962; 83605; 83690; 83880; 84439; 84443; 84479; 84484; 85007; 85025; 85027; 85610-TC; 86886; 86900; 86901; 86920; 87040-TC; 87070-TC; 87081; 87086; 87205-TC; 93005; 93306; 94002; 94003; 94640; 96361; 96365; 99291; C9113; J0461; J1940; J2543; J3370; J7050; J7060; P9021